=== PATIENT | female | born 1995 ===

== ENCOUNTER 2017-05-28 13:08 | Emergency (ER) | payer OTHER ==
[2017-05-28 13:28] VITALS: BMI 29.2
[2017-05-28 13:31] VITALS: BP 114/77; PULSE 77; RESP 18; TEMP 98.1; O2SAT 99
--- NOTE | 2017-05-28 13:58 | C.PDOC ---
History Of Present Illness 21 y/o female presents to ED with complaints of headache for 2 days with associated dizziness and chronic suprapubic pain for 2 years worsen now. Patient reports headache is generalized pressure like and intermittent. She has not taken any medication for symptoms. Her suprapubic pain has been present for 2 years after vaginal of her daughter. She states pain is not frequent dull and not currently in pain. She states she does not have a primary doctor or soup mixer. Denies fever, chills, dysuria, hematuria, vaginal discharge or vaginal bleeding. Time Seen by Provider: 05/28/17 13:35 Chief Complaint (Nursing): Headache History Per: Patient History/Exam Limitations: no limitations Onset/Duration Of Symptoms: Days Current Symptoms Are (Timing): Still Present Preceeding Symptoms: denies: Visual Disturbances Past Medical History Reviewed: Historical Data, Nursing Documentation, Vital Signs Vital Signs: Last Vital Signs Temp 98.1 F 05/28/17 13:28 Pulse 77 05/28/17 13:28 Resp 18 05/28/17 13:28 BP 114/77 05/28/17 13:28 Pulse Ox 99 05/28/17 14:39 - Medical History PMH: No Chronic Diseases Surgical History: No Surg Hx Family History: States: No Known Family Hx - Social History Hx Alcohol Use: No Hx Substance Use: No - Immunization History Hx Tetanus Toxoid Vaccination: No Hx Influenza Vaccination: No Hx Pneumococcal Vaccination: No Review Of Systems Constitutional: Negative for: Fever, Chills, Malaise Eyes: Negative for: Vision Change, Redness ENT: Positive for: Throat Pain. Negative for: Ear Pain, Nose Discharge, Nose Congestion Cardiovascular: Positive for: Palpitations. Negative for: Chest Pain Respiratory: Negative for: Cough, Shortness of Breath Gastrointestinal: Negative for: Nausea, Vomiting Genitourinary: Positive for: Pelvic Pain (2 years). Negative for: Dysuria, Frequency, Hematuria, Vaginal Discharge, Vaginal Bleeding Musculoskeletal: Negative for: Neck Pain, Back Pain Neurological: Positive for: Headache, Dizziness. Negative for: Weakness, Numbness Physical Exam - Physical Exam Appears: Well, Non-toxic, No Acute Distress Skin: Warm, Dry, No Rash Head: Atraumatic, Normacephalic, No Tenderness, No Swelling, No Abrasion Eye(s): bilateral: Normal Inspection (No nystagmus ), PERRL, EOMI Ear(s): Bilateral: Normal Nose: Normal Oral Mucosa: Moist Throat: Normal, No Erythema, No Exudate, No Drooling, No Mass Neck: Normal ROM, Supple Chest: Symmetrical Cardiovascular: Rhythm Regular, No Murmur Respiratory: Normal Breath Sounds, No Rales, No Rhonchi, No Wheezing Gastrointestinal/Abdominal: Soft, No Tenderness, No Guarding, No Rebound Back: Normal Inspection, No CVA Tenderness Extremity: Bilateral: Atraumatic, Normal Color And Temperature, Normal ROM Neurological/Psych: Oriented x3, Normal Speech, Normal Cranial Nerves, No Cerebellar Signs, Normal Motor, Normal Sensation Gait: Steady Other Neurological Findings: No Facial Palsy Extremity: Right: No Drift, Left: No Drift, Upper: No Drift, Lower: No Drift ED Course And Treatment O2 Sat by Pulse Oximetry: 99 (RA) Pulse Ox Interpretation: Normal Medical Decision Making Medical Decision Making: Impression: Headache, chronic pelvic pain Plan: Tylenol and Reglan administered. POC urine preg and UA ordered Progress: POC preg was negative. UA shows no UTI. 1435 Patient is sitting comfortably in no distress. She reports headache is improving. She has no fever, nuchal rigidity, neuro deficits or other concerning signs or symptoms. I explained to patient her urine results negative. Patient denies any vaginal discomfort or discharge. I advised patient to take analgesics for headache. Will give information for clinic for the patient to follow up with soup mixer. Patient stable for discharge Disposition Counseled Patient/Family Regarding: Diagnosis, Need For Followup, Rx Given - Disposition Referrals: Marimar Baron MD [Staff Provider] - [facility] [Outside] [facility] [Outside] Disposition: HOME/ ROUTINE Disposition Time: 14:39 Condition: GOOD Additional Instructions: Por favor, tome medicamentos segn sea necesario para el dolor de kiera. Descanse y newton lquidos. Tarik un seguimiento en la clnica para recibir ms atencin de dolor de kiera y tambin para kirill al gineclogo con respecto al dolor plvico. Las pruebas de orina hoy fueron normales y negativas para el embarazo. Prescriptions: Ibuprofen [Motrin] 600 mg PO Q8 #30 tab Metoclopramide [Reglan] 1 tab PO Q8 PRN #25 tab PRN Reason: Nausea/Vomiting Instructions: Headache, Adult (DC) Forms: [facility] ([place]) - POA Present On Arrival: None - Clinical Impression Clinical Impression: Headache, Chronic female pelvic pain - PA / [employer] OPERATOR / Resident Statement MD/DO has reviewed & agrees with the documentation as recorded. - Scribe Statement The provider has reviewed the documentation as recorded by the Radhaibmaryanne Jimenez All medical record entries made by the Bernarda were at my direction and personally dictated by me. I have reviewed the chart and agree that the record accurately reflects my personal performance of the history, physical exam, medical decision making, and the department course for this patient. I have also personally directed, reviewed, and agree with the discharge instructions and disposition.
[2017-05-28 14:03] LABS: SQUAMOUS EPITHIAL 5 /hpf (0-5); URINE BACTERIA RARE (<OCC); URINE BILIRUBIN NEGATIVE (NEGATIVE); URINE BLOOD 1+ (NEGATIVE); URINE CLARITY Hazy (Clear); URINE COLOR Straw (YELLOW); URINE GLUCOSE (UA) NORMAL (Normal); URINE LEUKOCYTE ESTERASE NEG Leu/uL (Negative); URINE PROTEIN NEGATIVE (NEGATIVE); URINE UROBILINOGEN NORMAL mg/dL (0.2-1.0)
== END 2017-05-28 14:47 | disposition home or self-care (01) ==
LOC: C.ER 13:08
DX: R51 Headache (principal); R10.2 Pelvic and perineal pain; G89.29 Other chronic pain